=== PATIENT | female | born 1980 | race Caucasian/White ===

== ENCOUNTER 2022-09-25 15:13 | Outpatient (CLI) | payer OTHER, SELFPAY ==
--- NOTE | 2022-09-25 15:10 | CRLHL7_ITS ---
For Patients: As a result of the Century Cures Act, medical imaging exams and procedure reports are released immediately into your electronic medical record. You may view this report before your referring provider. If you have questions, please contact your health care provider. BILATERAL SCREENING MAMMOGRAM WITH COMPUTER-AIDED DETECTION AND TOMOSYNTHESIS TECHNIQUE: CC and MLO views were obtained. These mammographic images have been obtained using full-field digital technique. These mammographic images were interpreted with the benefit of computer-aided detection. Breast Tomosynthesis was used in this interpretation. COMPARISON FILM: 09/17/21, 06/02/20. FINDINGS: The breasts are heterogeneously dense, which may obscure small masses IMPRESSION: There is no radiographic evidence for malignancy. ASSESSMENT: BI-RADS Category 2: Benign RECOMMENDATION: Routine screening mammogram in 1 year. A lay language report of this examination will be provided to the patient. Erasmo Jacques M.D. Diagnostic Radiologist [email or web address] DEMARCUS/Dictated by: Erasmo Jacques MD @ 09/26/2022 11:22:00 AM (Electronically Signed)
== END 2022-09-25 15:14 | disposition home or self-care (01) ==
LOC: MAMMO 15:17
DX: Z12.31 Encounter for screening mammogram for malignant neoplasm of breast (principal); R92.2 Inconclusive mammogram
CPT/HCPCS: 77063; 77067

== ENCOUNTER 2023-06-09 08:55 | Outpatient (CLI) | payer OTHER, SELFPAY ==
--- NOTE | 2023-06-09 11:00 | CRLHL7_ITS ---
For Patients: As a result of the Century Cures Act, medical imaging exams and procedure reports are released immediately into your electronic medical record. You may view this report before your referring provider. If you have questions, please contact your health care provider. Indication: ANTERIOR CHEST PAIN Technique: Limited noncontrast CT of the upper chest performed. Please note that all CT scans at this facility use dose modulation, iterative reconstruction, and/or weight-based dosing when appropriate to reduce radiation dose to as low as reasonably achievable. Comparison: 02/04/2018 Findings: The visualized lung parenchyma is normal. No suspicious pulmonary nodule or mass. No apical pneumothorax. There is subtle increased density within the manubrium bilaterally. Subtle contour deformity of the anterior manubrium in the midline also noted on the sagittal reconstructed images. Fragmentation of the left anterior 1st rib is present which is mostly symmetric with the right anterior 1st rib although there may be some increased fragmentation on the left. The scapula is intact as is the clavicle and sternoclavicular joints. Normal visualized thoracic spine and lower cervical spine. The thyroid gland is normal. Mild residual thymic tissue in the anterior mediastinum. No adenopathy in the mediastinum, yoselin or axilla. Visualized breast tissue is normal. Impression: Suggestion of diffuse stress reaction involving the manubrium and possibly left anterior 1st rib. No evidence of sternoclavicular joint pathology. No intrinsic osseous lesion. Please note that all CT scans at this facility use dose modulation, iterative reconstruction, and/or weight-based dosing when appropriate to reduce radiation dose to as low as reasonably achievable. Dictated by Erasmo Jacques MD @ 06/09/2023 9:50:12 AM (Electronically Signed)
== END 2023-06-09 08:56 | disposition home or self-care (01) ==
PROVIDERS: PCP Nurse Practitioner Family; Visit Provider Family Medicine
DX: R07.9 Chest pain, unspecified (principal)
CPT/HCPCS: 71250

== ENCOUNTER 2023-06-24 10:42 | Outpatient (CLI) | payer OTHER, SELFPAY | END 2023-06-24 10:43 | disposition home or self-care (01) | PROVIDERS: PCP Nurse Practitioner Family; Visit Provider Family Medicine | DX: S22.21XA Fracture of manubrium, initial encounter for closed fracture (principal) | CPT/HCPCS: 80048; 82784; 83520; 84165; 86140 ==

== ENCOUNTER 2023-07-24 12:56 | Outpatient (CLI) | payer OTHER, SELFPAY ==
--- NOTE | 2023-07-24 13:15 | CRLHL7_ITS ---
For Patients: As a result of the 21st Century Cures Act, medical imaging exams and procedure reports are released immediately into your electronic medical record. You may view this report before your referring provider. If you have questions, please contact your health care provider. EXAM: PET-CT Vertex to feet CLINICAL INFORMATION: 43-yo female with multiple myeloma. Patient is referred for further characterization. TECHNIQUE: Radiopharmaceutical: 11.4 mCi of 18F-FDG Intravenous injection site: RAC Uptake time: 53 minutes Blood glucose level at the time of injection: 80 mg/dL Field of view: Skull vertex to feet CT protocol: The low-dose, free-breathing, noncontrast CT performed as part of this study is designed for the purposes of attenuation correction and lesion localization, and it is neither sufficient, nor it should be substituted for diagnostic purposes. COMPARISON: CT chest 06/09/2023 FINDINGS: Physiologic background liver standardized uptake value (SUV mean and SUV max) reported for comparison between PET studies: 2.7 and 3.2. Visualized head and neck: Physiologic uptake in the visualized portions of the brain. Retention cyst/polyp right maxillary sinus. Bilateral palatine tonsil uptake is more prominent on the right. For example: Right palatine tonsil SUV max 8.2. Left palatine tonsil SUV max 5.1. Attention exam. Head and neck lymph nodes: No abnormal uptake. Lungs: No suspicious tracer avid pulmonary nodules. Focal ground-glass opacity in the medial right base may represent atelectasis or inflammatory change. No consolidation. No significant pleural effusions. Thoracic lymph nodes: No enlarged or hypermetabolic mediastinal, hilar or axillary lymph nodes. Mild strandy soft tissue density in the anterior superior mediastinum without mass effect is nonspecific though probably represents residual thymic tissue, SUV max 2.3 (fused image 138). Other chest findings: Physiologic myocardial uptake. Dense bilateral breast parenchymal elements with no asymmetric uptake. Hepatobiliary: No tracer avid liver lesions. Small bilateral hypodense hepatic lesions demonstrate no suspicious uptake above background liver. Spleen: No abnormal uptake. No splenomegaly. Pancreas: No abnormal uptake. Adrenals: No abnormal uptake. Kidneys and bladder: No abnormal uptake or obstruction. Partially distended bladder with no asymmetric wall thickening. Bowel and peritoneum: No suspicious gastric uptake. Adjacent mildly thickened jejunal loops in the left upper quadrant and midline upper abdomen with no evidence of obstruction. Distal small bowel and colon demonstrate no abnormal uptake. Generalized uptake in the lower rectum and anal canal associated with mild wall thickening, SUV max 7.1 (fused image 290). Nonspecific, possibly reactive/inflammatory or related to proctitis. Correlate with symptoms. -Mild colonic diverticulosis without inflammatory change. Pelvic organs: Right adnexal/ovarian cyst demonstrates no suspicious uptake. Physiologic curvilinear uptake borders the right ovary. Linear uptake along the endometrial stripe is favored physiologic. No abnormal left adnexal uptake. Abdominopelvic lymph nodes: No enlarged or hypermetabolic abdominopelvic lymph nodes. Musculoskeletal, soft tissues, skin: No purely lytic or expansile osseous lesions with uptake. However, there are asymmetric erosive changes involving the left anterior 1st rib costochondral junction with associated uptake in the left 1st rib chondral cartilage and erosions along sternocostal margin of the adjacent manubrium with uptake, SUV max 3.6 (fused image 124). No measurable soft tissue mass. Similar though much less prominent findings involve the sternocostal margin of the right side of the manubrium. Adjacent sternoclavicular joints are intact bilaterally with no suspicious uptake or erosions of the clavicular heads. Other: Trace pelvic fluid. IMPRESSION: 1. No purely lytic or expansile osseous lesions with uptake. However, asymmetric erosive changes with uptake involve the left 1st rib costochondral junction, left 1st rib chondral cartilage and the sternocostal margin of the left side of the new manubrium. Similar erosive changes along the right side of the sternocostal margin of the manubrium. No measurable soft tissue mass. Overall imaging findings are indeterminate, possibly reactive/inflammatory, posttraumatic or related to inflammatory arthropathy. 2. No distant sites of tracer avid disease in the lungs, solid organs of the upper abdomen or abdominopelvic lymph nodes. 3. Generalized uptake in the lower rectum and anal canal associated with mild wall thickening is considered nonspecific, possibly reactive/inflammatory related to proctitis. Correlate with symptoms. 4. Asymmetric uptake within the palatine tonsils more prominent on the right. Attention on exam. 5. Other nonacute findings as detailed in the body of the report. Dictated by Kodak López MD @ 07/27/2023 7:07:44 PM (Electronically Signed)
== END 2023-07-24 12:57 | disposition home or self-care (01) ==
LOC: RAD 12:57
PROVIDERS: PCP Nurse Practitioner Family; Visit Provider Family Medicine
DX: R77.9 Abnormality of plasma protein, unspecified (principal)
CPT/HCPCS: 78816; A9552

== ENCOUNTER 2023-07-25 10:38 | Outpatient (CLI) | payer OTHER, SELFPAY | END 2023-07-25 10:39 | disposition home or self-care (01) | LOC: NFLDREF 07-27 05:29 | PROVIDERS: PCP Nurse Practitioner Family; Referring Provider Nurse Practitioner Family; Visit Provider Family Medicine | DX: R77.9 Abnormality of plasma protein, unspecified (principal) | CPT/HCPCS: 82232; 83615 ==

== ENCOUNTER 2023-07-31 14:14 | Outpatient (CLI) | payer OTHER, SELFPAY ==
--- NOTE | 2023-07-31 14:30 | CRLHL7_ITS ---
For Patients: As a result of the Century Cures Act, medical imaging exams and procedure reports are released immediately into your electronic medical record. You may view this report before your referring provider. If you have questions, please contact your health care provider. DXA BONE MINERAL DENSITY STUDY Current height (in): 63.0. Weight (lb): 130.0. Menopause age: N/A. Ethnicity: White. Reason for exam: Abnormal serum protein electrophoresis. 1. Have you had a previous hip or vertebral fracture? No. 2. Have you had any fractures during your adult life which did not result from significant trauma (e.g., auto accident)? Yes. 3. Did either of your parents have a hip fracture? No. 4. Do you smoke? No. 5. Have you ever taken Glucocorticoids? No. 6. Do you have rheumatoid arthritis? No. 7. Do you have secondary osteoporosis? No. 8. Do you drink 3 or more alcoholic drinks per day? No. 9. Are you being treated for osteoporosis? No. 10. Have you ever taken any of the following medications: Actonel, Evista, Fosamax, Miacalcin, Reclast, Boniva, Forteo, HRT (i.e. estrogen/hormone therapy), Protelos, Prolia, Vitamin D, Calcium, other ??? please specify. ANSWER: Yes, calcium, vitamin D. 11. Do you have any of the following medical conditions: Anorexia or bulimia, asthma or emphysema, end stage renal disease, hyperparathyroidism, any seizure disorders, cancer, inflammatory bowel diseases, hysterectomy, other ??? please specify. ANSWER: No. 12. What was your maximum height (inches)? 63. 13. Do you perform weight bearing exercise regularly? Yes. 14. Do you regularly consume dairy products? Yes. 15. Do you drink caffeinated beverages? Yes. 16. At what age did your period start? 10. 17. Are you premenopausal? Yes. 18. How many full-term pregnancies have you had? 2. 19. Have you ever missed your period for more than 6 months in a row (not including or menopause)? No. TECHNIQUE: Bone mineral density study was performed using the [employer]. FINDINGS: The results of the study expressed as bone mineral density (BMD) are as follows: Lumbar spine L1 to L4: BMD: 0.891 g/cm2. Z-score: -1.0. Neck Left: BMD: 0.659 g/cm2. Z-score: -1.3. Right: BMD: 0.665 g/cm2. Z-score: -1.3. Total Left: BMD: 0.835 g/cm2. Z-score: -0.6. Right: BMD: 0.824 g/cm2. Z-score: -0.7. IMPRESSION: Normal bone density. Erasmo Jacques M.D. Diagnostic Radiologist [email or web address] Transcribed: 2:53 pm DW/Dictated by: Erasmo Jacques MD @ 08/01/2023 10:52:00 AM (Electronically Signed)
== END 2023-07-31 14:15 | disposition home or self-care (01) ==
LOC: RAD 14:14
PROVIDERS: PCP Nurse Practitioner Family; Visit Provider Family Medicine
DX: R77.8 Other specified abnormalities of plasma proteins (principal)
CPT/HCPCS: 77080

== ENCOUNTER 2024-04-02 07:28 | Outpatient (CLI) | payer OTHER, SELFPAY ==
--- NOTE | 2024-04-02 07:45 | CRLHL7_ITS ---
For Patients: As a result of the Century Cures Act, medical imaging exams and procedure reports are released immediately into your electronic medical record. You may view this report before your referring provider. If you have questions, please contact your health care provider. BILATERAL SCREENING MAMMOGRAM WITH COMPUTER-AIDED DETECTION AND TOMOSYNTHESIS TECHNIQUE: CC and MLO views were obtained. These mammographic images have been obtained using full-field digital technique. These mammographic images were interpreted with the benefit of computer-aided detection. Breast Tomosynthesis was used in this interpretation. COMPARISON FILM: 09/25/22, 09/17/21, 06/02/20. FINDINGS: The breasts are extremely dense, which lowers the sensitivity of mammography. IMPRESSION: There is no radiographic evidence for malignancy. ASSESSMENT: BI-RADS Category 2: Benign RECOMMENDATION: Routine screening mammogram in 1 year. A lay language report of this examination will be provided to the patient. Erasmo Jacques M.D. Diagnostic Radiologist [email or web address] SP/Dictated by: Erasmo Jacques MD @ 04/02/2024 10:53:00 AM (Electronically Signed)
== END 2024-04-02 07:29 | disposition home or self-care (01) ==
PROVIDERS: PCP Nurse Practitioner Family; Visit Provider Nurse Practitioner Family
DX: Z12.31 Encounter for screening mammogram for malignant neoplasm of breast (principal); R92.2 Inconclusive mammogram
CPT/HCPCS: 77063; 77067

== ENCOUNTER 2024-09-01 08:35 | Outpatient (CLI) | payer OTHER, SELFPAY ==
[2024-09-04 06:25] LABS: HPV Source Cervix; HPV, High Risk by TMA Not Detected
== END 2024-09-01 08:36 | disposition home or self-care (01) ==
PROVIDERS: PCP Nurse Practitioner Family; Visit Provider Registered Nurse
DX: Z12.4 Encounter for screening for malignant neoplasm of cervix (principal); Z11.51 Encounter for screening for human papillomavirus (HPV)
CPT/HCPCS: 87624; 87625; 88141; 88142

== ENCOUNTER 2024-10-04 12:50 | Outpatient (CLI) | payer OTHER, SELFPAY | END 2024-10-04 12:51 | disposition home or self-care (01) | LOC: US 12:50 | PROVIDERS: PCP Nurse Practitioner Family; Visit Provider Obstetrics & Gynecology | DX: Z30.430 Encounter for insertion of intrauterine contraceptive device (principal); Z30.9 Encounter for contraceptive management, unspecified | CPT/HCPCS: 58300; 76857; 76942 ==

== ENCOUNTER 2024-10-29 07:19 | Outpatient (CLI) | payer OTHER, SELFPAY | END 2024-10-29 07:20 | disposition home or self-care (01) | LOC: NFLDREF 10-31 04:14 | PROVIDERS: PCP Nurse Practitioner Family; Referring Provider Nurse Practitioner Family; Visit Provider Family Medicine | DX: S22.21XA Fracture of manubrium, initial encounter for closed fracture (principal); D64.9 Anemia, unspecified | CPT/HCPCS: 80048; 80076; 82784; 83520; 84165; 86140 ==

== ENCOUNTER 2025-05-16 13:51 | Outpatient (CLI) | payer OTHER, SELFPAY ==
--- NOTE | 2025-05-16 15:20 | CRLHL7_ITS ---
For Patients: As a result of the Century Cures Act, medical imaging exams and procedure reports are released immediately into your electronic medical record. You may view this report before your referring provider. If you have questions, please contact your health care provider. INDICATION: BILATERAL SCREENING MAMMOGRAM, ASYMPTOMATIC 44 Y/O FEMALE COMPARISON: 04/02/2024, 09/25/2022, 09/17/2021 TECHNIQUE: Digital mammogram in CC and MLO projections including computer-aided detection (CAD) and tomosynthesis. BREAST COMPOSITION: The breasts are heterogeneously dense, which may obscure small masses. FINDINGS: No suspicious findings. ASSESSMENT: BI-RADS 1 Negative RECOMMENDATION: Annual screening mammogram. A lay language report of this examination will be provided to the patient. Dictated by: Taryn Richards MD @ 05/19/2025 09:02:32 (Electronically Signed)
== END 2025-05-16 13:52 | disposition home or self-care (01) ==
LOC: MAMMO 13:52
PROVIDERS: PCP Nurse Practitioner Family; Visit Provider Family Medicine
DX: Z12.31 Encounter for screening mammogram for malignant neoplasm of breast (principal); R92.333 Mammographic heterogeneous density, bilateral breasts
CPT/HCPCS: 77063; 77067

== ENCOUNTER 2025-09-27 20:29 | Outpatient (CLI) | payer OTHER, SELFPAY ==
--- NOTE | 2025-09-27 20:30 | CRLHL7_ITS ---
For Patients: As a result of the Century Cures Act, medical imaging exams and procedure reports are released immediately into your electronic medical record. You may view this report before your referring provider. If you have questions, please contact your health care provider. Indication: Left lower quadrant and Technique: CT through the abdomen and pelvis following 69 mL Isovue 370 IV contrast Comparison: None Findings: Lower chest: No acute abnormality appreciated. Hepatobiliary: No significant parenchymal abnormality is appreciated. Spleen: Unremarkable. Pancreas: No acute abnormality appreciated. Adrenal glands: No acute abnormality appreciated. Kidneys: No significant parenchymal abnormality appreciated. No visualized calculi. No hydronephrosis. Bowel: No obstruction. Focal wall thickening and stranding of the descending colon associated with an inflamed appearing diverticulum. The appendix is visualized and appears unremarkable. Vascular: No acute abnormality appreciated. Lymph nodes: No gross lymphadenopathy. Peritoneum: Small volume fluid. No free air. : IUD present. Soft tissues: No acute abnormality appreciated. Bones: No acute fracture. No lytic or blastic lesion. Impression: Acute descending colonic diverticulitis. Please note that all CT scans at this facility use dose modulation, iterative reconstruction, and/or weight-based dosing when appropriate to reduce radiation dose to as low as reasonably achievable. Dictated by Allen Plasencia MD @ 09/27/2025 8:59:00 PM (Electronically Signed)
== END 2025-09-27 20:30 | disposition home or self-care (01) ==
PROVIDERS: PCP Family Medicine; Visit Provider Family Medicine
DX: R10.32 Left lower quadrant pain (principal); K57.32 Diverticulitis of large intestine without perforation or abscess without bleeding
CPT/HCPCS: 74177; Q9967